=== PATIENT | male | born 1995 | race Caucasian/White ===

== ENCOUNTER 2019-02-01 05:02 | Emergency (ER) | payer OTHER ==
[~2019-02-01] VITALS: Ht 195.6 cm; Wt 117.5 kg
[2019-02-01 05:06] VITALS: Ht 195.6 cm; Wt 117.5 kg
[2019-02-01 06:20] VITALS: BP 127/79
== END 2019-02-01 06:20 | disposition home or self-care (01) ==
LOC: ED 05:02
DX: T78.40XA Allergy, unspecified, initial encounter (principal); J45.909 Unspecified asthma, uncomplicated; X58.XXXA Exposure to other specified factors, initial encounter
CPT/HCPCS: J2930